=== PATIENT | female | born 1970 | race Caucasian/White ===

== ENCOUNTER 2018-06-27 15:14 | Emergency (ER) | payer SELFPAY ==
[2018-06-27 15:21] VITALS: BMI 32.9
[2018-06-27] MEDS ORDERED: PANTOPRAZOLE SODIUM 40 MG in SODIUM CHLORIDE 100 ML IVPB ONE (15:22)
[2018-06-27] MEDS ORDERED: SODIUM CHLORIDE 1,000 ML IV STA (15:22)
[2018-06-27] MEDS ORDERED: ONDANSETRON 4 MG/2 ML VIAL IVPUSH ONE (15:22)
--- NOTE | 2018-06-27 15:22 | PDOC ---
Rapid Medical Evaluation Time Seen by Provider: 06/27/18 15:16 Medical Evaluation: Allergies Allergy/AdvReac Type Severity Reaction Status Date / Time No Known Allergies Allergy Verified 04/21/17 18:45 06/27/18 15:19 Pt c/o: epigastric cramping with n/v x 2 since this am Pt on exam: vss, epigastric tenderness, no ruq tenderness pt ordered for: cbc. comp, lipase, u hcg, ivf, protonix, zofran Pt to proceed to the ED Discharge Disposition - Diagnosis Epigastric abdominal pain - Referrals - Patient Instructions - Post Discharge Activity
[2018-06-27 16:03] LABS: BASO % 0.2 % (0-2.0); EOS % 0.4 % (0-4.5); HEMATOCRIT 38.1 % (32.4-45.2); HEMOGLOBIN 13.4 GM/dL (10.7-15.3); LYMPH % 12.2 % (8-40); MCH 30.3 pg (25.7-33.7); MCHC 35.2 g/dl (32.0-36.0); MEAN CELL VOLUME 86.2 fl (80-96); MEAN PLT VOLUME 8.8 fl (7.5-11.1); MONO % 4.5 % (3.8-10.2); NEUT % 82.7 % (42.8-82.8); PLATELET COUNT 274 K/MM3 (134-434); RBC 4.42 M/mm3 (3.60-5.2); RDW 14.2 % (11.6-15.6); WHITE BLOOD COUNT 9.5 K/mm3 (4.0-10.0)
[2018-06-27 16:07] LABS: ALBUMIN 3.6 g/dl (3.4-5.0); ALK PHOS 160 U/L (45-117); ANION GAP 7 MMOL/L (8-16); BILIRUBIN,TOTAL 0.6 mg/dL (0.2-1); BLOOD UREA NITROGEN 17 mg/dL (7-18); CALCIUM 9.2 mg/dL (8.5-10.1); CHLORIDE 104 mmol/L (98-107); CO2 31 mmol/L (21-32); CREATININE 0.6 mg/dL (0.55-1.3); GLUCOSE,RANDOM 104 mg/dL (74-106); LIPASE 163 U/L (73-393); POTASSIUM 3.8 mmol/L (3.5-5.1); SGOT/AST 104 U/L (15-37); SGPT/ALT 64 U/L (13-61); SODIUM 141 mmol/L (136-145)
[2018-06-27 16:51] LABS: HCG,QUALITATIVE URINE Negative
--- NOTE | 2018-06-27 16:51 | PDOC ---
History of Present Illness - General Chief Complaint: Pain Stated Complaint: ABD PAIN Time Seen by Provider: 06/27/18 15:16 History Source: Patient Exam Limitations: Clinical Condition - History of Present Illness Initial Comments: 06/27/18 16:46 Patient with no significant past medical history present with complaint of epigastric pain and 2 episodes of vomiting since this morning. Patient denies diarrhea, chills, fever or constipation. Patient reported abdominal pain has mildly improved and now only have mild abdominal pain. Timing/Duration: 4-6 hours Past History - Past Medical History Allergies/Adverse Reactions: Allergies Allergy/AdvReac Type Severity Reaction Status Date / Time No Known Allergies Allergy Verified 04/21/17 18:45 Home Medications: Ambulatory Orders Famotidine [Pepcid] 20 mg PO DAILY #10 tablet 06/27/18 Mag Hydrox/Aluminum Hyd/Simeth [Maalox Advanced Suspension] 30 ml PO Q8H PRN # 300 ml 06/27/18 COPD: No - Suicide/Smoking/Psychosocial Hx Smoking History: Never smoked Information on smoking cessation initiated: No Hx Alcohol Use: No Drug/Substance Use Hx: No Substance Use Type: None Review of Systems - Review of Systems Able to Perform ROS?: Yes Is the patient limited Hungarian proficient: No Constitutional: No: Chills, Fever, Weakness HEENTM: No: Symptoms Reported Respiratory: No: Symptoms reported Cardiac (ROS): No: Symptoms Reported ABD/GI: Yes: See HPI, Nausea, Vomiting, Abdominal cramping (epigastric pain). No: Constipated, Diarrhea, Poor Appetite, Poor Fluid Intake, Indigestion : No: Burning, Discharge, Frequency, Urgency All Other Systems: Reviewed and Negative *Physical Exam - Vital Signs Last Vital Signs Temp Pulse Resp BP Pulse Ox 98 F 71 20 131/61 99 06/27/18 15:17 06/27/18 15:17 06/27/18 15:17 06/27/18 15:17 06/27/18 15:17 - Physical Exam Comments: 06/27/18 16:48 GENERAL: Well developed, well nourished. Awake and alert. No acute distress. HEENT: No conjunctival pallor. Sclera are non-icteric. Moist mucous membranes. Oropharynx is clear. NECK: Supple. Full ROM. CARDIOVASCULAR: Regular rate and rhythm. No murmurs, rubs, or gallops. Distal pulses are 2+ and symmetric. PULMONARY: No evidence of respiratory distress. Lungs clear to auscultation bilaterally. No wheezing, rales or rhonchi. ABDOMINAL: mild epigastric tenderness. Soft. Non-distended. No rebound or guarding. No organomegaly. Normoactive bowel sounds. MUSCULOSKELETAL Normal range of motion at all joints. EXTREMITIES: No cyanosis. No clubbing. No edema. SKIN: Warm and dry. NEUROLOGICAL: Alert, awake, appropriate. Gait is normal without ataxia. PSYCHIATRIC: Cooperative. Good eye contact. Appropriate mood General Appearance: Yes: Nourished, Appropriately Dressed. No: Apparent Distress Moderate Sedation - Procedure Monitoring Vital Signs: Procedure Monitoring Vital Signs Temperature 98 F 06/27/18 15:17 Pulse Rate 71 06/27/18 15:17 Respiratory Rate 20 06/27/18 15:17 Blood Pressure 131/61 06/27/18 15:17 O2 Sat by Pulse Oximetry (%) 99 06/27/18 15:17 ED Treatment Course - LABORATORY CBC & Chemistry Diagram: 06/27/18 15:34 06/27/18 15:34 - ADDITIONAL ORDERS Additional order review: Laboratory Results 06/27/18 15:34 Sodium 141 Potassium 3.8 Chloride 104 Carbon Dioxide 31 Anion Gap 7 L BUN 17 Creatinine 0.6 Creat Clearance w eGFR > 60 Random Glucose 104 Calcium 9.2 Total Bilirubin 0.6 AST 104 H ALT 64 H Alkaline Phosphatase 160 H Total Protein 8.0 Albumin 3.6 Lipase 163 06/27/18 15:34 RBC 4.42 MCV 86.2 MCHC 35.2 RDW 14.2 MPV 8.8 Neutrophils % 82.7 Lymphocytes % 12.2 Monocytes % 4.5 Eosinophils % 0.4 Basophils % 0.2 - RADIOLOGY Radiology Studies Ordered: Category Date Time Status ABDOMEN US -LIMITED [US] Stat Ultrasound 06/27/18 16:41 Ordered Medical Decision Making - Medical Decision Making 06/27/18 16:50 Patient with no significant past medical history present with complaint of epigastric pain with 2 episodes of vomiting since this morning and now with improved abdominal pain. Exam significant for mild tenderness to epigastric region with no pain to right upper quadrant and left upper quadrant area. No rebound or guarding to abdominal exam. CBC, CMP and urine tests ordered. Abdominal ultrasound ordered to rule out cholecystitis or gallstone. 06/27/18 17:31 CBC shows no elevated and white count. Chemistry shows abnormal AST and ALTs labs otherwise unremarkable. Abd US pending 06/27/18 17:52 Abdominal ultrasound shows multiple gallstones with no evidence of cholecystitis. Patient is stable for discharge on Pepcid and Maalox for symptomatic relief with GI and general surgery follow-up given patient reported feeling improved pain. 06/27/18 18:22 EKG shows normal sinus rhythm. Patient stable for discharge *DC/Admit/Observation/Transfer Diagnosis at time of Disposition: Epigastric abdominal pain Cholelithiasis Qualifiers: Cholelithiasis location: gallbladder Cholecystitis presence: without cholecystitis Biliary obstruction: without biliary obstruction Qualified Code(s) : K80.20 - Calculus of gallbladder without cholecystitis without obstruction - Discharge Dispostion Disposition: HOME Condition at time of disposition: Stable Decision to Admit order: No - Prescriptions Prescriptions: Famotidine [Pepcid] 20 mg PO DAILY #10 tablet Mag Hydrox/Aluminum Hyd/Simeth [Maalox Advanced Suspension] 30 ml PO Q8H PRN # 300 ml PRN Reason: abdominal discomfort - Referrals Referrals: Juliocesar Gallagher MD [Staff Physician] - Chris Rios MD [Staff Physician] - - Patient Instructions Printed Discharge Instructions: Gallstones Additional Instructions: Your abdominal ultrasound showed small gallstones. Take medications as prescribed. Increase fluid intake. Follow-up referred to GI doctor as soon as possible. Print Language: MONGOLIAN - Post Discharge Activity
[2018-06-27 17:07] LABS: URINE APPEARANCE CLOUDY; URINE COLOR AMBER; URINE GLUCOSE (UA) NEGATIVE (NEGATIVE); URINE KETONE NEGATIVE (NEGATIVE); URINE LEUK ESTERASE TRACE (NEGATIVE); URINE NITRITE NEGATIVE (NEGATIVE); URINE PROTEIN 2+ (NEGATIVE); URINE UROBILINOGEN 4.0 E.U/dl mg/dL (0.2-1.0)
[2018-06-27 17:14] LABS: CALCIUM OXALATE CRYSTALS MANY /hpf (NONE SEEN); EPI CELLS MODERATE /HPF (FEW); URINE HYALINE CAST 3 /lpf; URINE MUCUS MANY
[2018-06-27] MEDS ORDERED: ONDANSETRON 4 MG/2 ML VIAL ONE (17:36)
[2018-06-27] MEDS ORDERED: PANTOPRAZOLE SODIUM 40 MG VIAL ONE (17:36)
--- NOTE | 2018-06-27 17:56 | PDOC ---
*Physical Exam - Vital Signs Last Vital Signs Temp Pulse Resp BP Pulse Ox 98 F 71 20 131/61 99 06/27/18 15:17 06/27/18 15:17 06/27/18 15:17 06/27/18 15:17 06/27/18 15:17 - Physical Exam Comments: 06/27/18 17:54 Vital signs normal, afebrile Well-appearing, no jaundice or pallor Moist mucosa Heart is regular, lungs are clear Abdomen is soft/nontender/nondistended, no guarding or rebound, no right upper quadrant tenderness, no CVA tenderness No rash Heart Score/ECG Review #1 ECG reviewed & interpreted by me at: 18:16 General ECG Interpretation: Sinus Rhythm, Normal Rate (70), Normal Intervals ( qtc 403), No acute ischemic changes ED Treatment Course - LABORATORY CBC & Chemistry Diagram: 06/27/18 15:34 06/27/18 15:34 - ADDITIONAL ORDERS Additional order review: Laboratory Results 06/27/18 06/27/18 16:10 15:34 Sodium 141 Potassium 3.8 Chloride 104 Carbon Dioxide 31 Anion Gap 7 L BUN 17 Creatinine 0.6 Creat Clearance w eGFR > 60 Random Glucose 104 Calcium 9.2 Total Bilirubin 0.6 AST 104 H ALT 64 H Alkaline Phosphatase 160 H Total Protein 8.0 Albumin 3.6 Lipase 163 Urine Color Padmini Urine Appearance Cloudy Urine pH 6.0 Ur Specific [place] 1.027 Urine Protein 2+ H Urine Glucose (UA) Negative Urine Ketones Negative Urine Blood 1+ H Urine Nitrite Negative Urine Bilirubin 2.0 Urine Urobilinogen 4.0 e.u/dl H Ur Leukocyte Esterase Trace Urine WBC (Auto) 33 Urine RBC (Auto) 27 Ur Epithelial Cells Moderate Calcium Oxalate Crystal Many Hyaline Casts 3 Urine Mucus Many Urine HCG, Qual Negative 06/27/18 15:34 RBC 4.42 MCV 86.2 MCHC 35.2 RDW 14.2 MPV 8.8 Neutrophils % 82.7 Lymphocytes % 12.2 Monocytes % 4.5 Eosinophils % 0.4 Basophils % 0.2 - Medications Given in the ED: ED Medications Discontinued Medications Generic Name Dose Route Start Last Admin Trade Name Freq PRN Reason Stop Dose Admin Pantoprazole Sodium 40 mg/ 100 mls @ 200 mls/hr 06/27/18 15:22 06/27/18 17:40 Sodium Chloride IVPB 06/27/18 15:51 200 mls/hr ONCE ONE Administration Sodium Chloride 1,000 mls @ 1,000 mls/hr 06/27/18 15:22 06/27/18 17:00 Normal Saline - IV 06/27/18 16:21 1,000 mls/hr ASDIR STA Administration Ondansetron HCl 4 mg 06/27/18 15:22 06/27/18 17:40 Zofran Injection IVPUSH 06/27/18 15:23 4 mg ONCE ONE Administration Medical Decision Making - Medical Decision Making 06/27/18 17:55 48-year-old female with no severe past medical or surgical history presents with episode of epigastric pain with nonbloody nonbilious vomiting around 10 AM this morning after eating eggs, now resolved. No history of postprandial pain, never had endoscopy or colonoscopy, no history of gastritis or ulcers. No recent antibiotics, no diet changes. Currently without any complaints. Labs are within normal limits, slight transaminitis and alkaline phosphatase elevation. Check right upper quadrant ultrasound to rule out gallbladder disease Possible gastritis, no evidence for pancreatitis Urinalysis with elevated red and white blood cells, consider treatment though asymptomatic 06/27/18 18:47 cholelithiasis without cholecystitis. sxs completely resolved, abd benign, tolerating PO. wants to be discharged and will f/u gen surg as outpatient, understands return criteria. *DC/Admit/Observation/Transfer Diagnosis at time of Disposition: Epigastric abdominal pain, Cholelithiasis - Discharge Dispostion Disposition: HOME Condition at time of disposition: Stable - Prescriptions Prescriptions: Famotidine [Pepcid] 20 mg PO DAILY #10 tablet Mag Hydrox/Aluminum Hyd/Simeth [Maalox Advanced Suspension] 30 ml PO Q8H PRN # 300 ml PRN Reason: abdominal discomfort - Referrals Referrals: Chris Rios MD [Staff Physician] - Juliocesar Gallagher MD [Staff Physician] - - Patient Instructions Printed Discharge Instructions: Gallstones Additional Instructions: Your abdominal ultrasound showed small gallstones. Take medications as prescribed. Increase fluid intake. Follow-up referred to GI doctor as soon as possible. Print Language: NEPALESE - Post Discharge Activity
[2018-06-27 19:06] VITALS: BP 131/72; PULSE 63; TEMP 97.6
--- NOTE | 2018-06-28 11:56 | EKG ---
Test Reason : Blood Pressure : / mmHG Vent. Rate : 070 BPM Atrial Rate : 070 BPM P-R Int : 146 ms QRS Dur : 096 ms QT Int : 374 ms P-R-T Axes : 055 068 077 degrees QTc Int : 403 ms NORMAL SINUS RHYTHM NONSPECIFIC T WAVE ABNORMALITY ABNORMAL ECG NO PREVIOUS ECGS AVAILABLE Confirmed by DIANNA ANTONIO, ÁVLARO ([id number]) on 06/28/2018 11:55:38 AM Referred By: Confirmed By:ÁLVARO BUSTAMANTE MD
== END 2018-06-27 18:30 | disposition home or self-care (01) ==
LOC: JER 15:14
PROC: 3E033GC Introduction of Other Therapeutic Substance into Peripheral Vein, Percutaneous Approach (ICD-10-PCS; principal; 2018-06-27)
PROC: 3E033GC Introduction of Other Therapeutic Substance into Peripheral Vein, Percutaneous Approach (ICD-10-PCS; 2018-06-27)
DX: K80.20 Calculus of gallbladder without cholecystitis without obstruction (principal)
CPT/HCPCS: 36415; 76705-TC; 80053; 81003; 81015; 83690; 84703; 85025; 93005; 93010; 99283-25; J7030